=== PATIENT | female | born 1965 | race Caucasian/White ===

== ENCOUNTER 2024-11-12 08:36 | Emergency (ER) | payer OTHER, SELFPAY ==
--- NOTE | 2024-11-12 08:30 | DI.RAD_ITS ---
Exam(s) XR WRIST LT COMPLETE EXAM: XR WRIST LT COMPLETE CLINICAL HISTORY: Fall, eval fx. TECHNIQUE: 2D digital imaging was performed of the left wrist. Three images were obtained. Scaphoi d, PA, oblique and lateral views were obtained. COMPARISON: No exams were available for comparison FINDINGS: BONES: There is osseous density on the dorsum of the wrist suspicious for a triquetral fracture. The re is also question of occluded the at the posterior aspect of the radius suspicious for nondisplaced fracture. No bony destructive lesion is seen. JOINTS: The carpal bones are normally aligned. SOFT TISSUE: There is soft tissue swelling of the dorsum of the wrist. IMPRESSION: Findings suspicious for fracture involving the distal aspect of the radius dorsally and a possible tr iquetral bone fracture dorsally. A CT scan of the wrist is recommended for further evaluation. DATA REPOSITORY: RADIATION DOSE DELIVERED:
[2024-11-12 08:41] VITALS: BP 142/88; PULSE 80; RESP 18; TEMP 36.8; O2SAT 98
--- NOTE | 2024-11-12 08:44 | ED.GENADUL_ITS ---
Discharge Plan Disposition Patient Disposition: Home Condition: Stable Discharge Details Clinical Impression: Fracture of triquetral bone of left wrist, Distal radial fracture Primary Care Provider: Naima,Local ED Provider: Nita Phan Home Meds and New Rx's Prescriptions: No Action atorvastatin [Lipitor] 10 mg tablet 10 mg PO DAILY Discharge Instructions Instructions: Wrist Fracture (DC) Additional Instructions: You were seen in the emergency department today for evaluation of a fall and were found to have a fracture of your distal radius and your triquetrum. In our department you do full physical examination performed and had a splint placed. You can wear your sling for support and comfort, and need to follow-up with an orthopedic doctor in 1 week for reevaluation and cast placement. Please use Tylenol and ibuprofen for pain and ice and elevation for swelling. Thank you for allowing us to be part of your care. Discharge Data Discharge Date/Time-TO BE ENTERED AT DEPARTURE: 11/12/24 09:41 HPI General Mode of arrival: ambulatory . Date/Time Provider Initiated Documentation: 11/12/24 08:43 . Limitations to Documentation: no limitations . Information obtained by: patient . HPI Narrative: HPI: This is a 59-year-old female patient with a history of hypercholesterolemia who is presenting for evaluation of a left wrist injury. The patient was walking her dog yesterday and slipped on the ice, falling forward onto her left wrist. She states that she did not lose consciousness or injure any other part of her body during this event. Initialization she thought that she had sprained it, has been managing her symptoms at home with ibuprofen and ice. She states that the pain and swelling are worse today and she is concerned that she may have a fracture. Prior to this event the patient was in her normal state of health, and this is an isolated injury. Exam: Gen: Awake and alert, in no apparent distress HEENT: Non-icteric sclera Neck: Supple Lungs: No apparent respiratory distress, normal respiratory effort. CV: Appears well perfused Abdomen: Non-distended MSK: Moves 4 extremities without apparent limitation in ROM with the exception of her left wrist, which is swollen and painful at the radial aspect. No overlying skin breaks, no associated tenderness, deformity, or decreased range of motion at the shoulder, elbow, or fingers. She has full neurovascular function distal to this injury, minimal tenderness to palpation over the anatomical snuffbox. Skin: Visualized skin without rashes, cyanosis. Neuro: Normal Gait, no obvious focal deficits or facial asymmetry. Speaks in full, clear sentences. Psych: Appropriate for situation. MDM: This is a 59-year-old female patient presenting for evaluation of a wrist injury. Differential includes but is not limited to fracture, dislocation, sprain/strain, I below concern for neurovascular injury and reassuringly the patient has no other associated traumatic complaints. She is not desiring of any medications for management of pain at this time, and we will proceed with x- ray imaging of the affected left wrist. ED Course: I reviewed the patient's x-ray, which does show a nondisplaced distal radius fracture as well as a triquetral avulsion fracture without associated dislocation. For this reason I placed the patient in a sugar-tong splint and provided her with a sling for comfort. She resides in [place] and is traveling home in 2 days, and has the ability to follow-up with orthopedics when she returns home. At this time, the patient has had a full medical evaluation and is safe for discharge to home. They are hemodynamically stable, ambulatory, and tolerating PO. They are understanding of the follow-up plan and return precautions. They left our facility without incident. Nita Phan MD Related Data Home Medications ?Medication ?Instructions ?Recorded ?Confirmed atorvastatin 10 mg tablet (Lipitor) 10 mg PO DAILY 11/12/24 11/12/24 Allergies Allergy/AdvReac Type Severity Reaction Status Date / Time No Known Allergies Allergy Unverified 11/12/24 08:45 Procedure Orthopedic Splinting/Casting Date of Procedure: 11/12/24 Time of procedure: 08:40 Provider that performed the procedure: Nita Phan Standard Time Out Performed: No Patient Consented: Verbally Side: left Upper Extremity Injury Location: wrist Upper Extremity Immobilizer: sling/shoulder immobilizer and sugartong splint Medical Decision Making Quality:SDOH Health Related Social Needs: No Data to Display PFSH All Active Problems (Updated 11/12/24 @ 09:29 by Nita Phan MD) Distal radial fracture (Acute) Fracture of triquetral bone of left wrist (Acute) Social History Smoking/Tobacco Use Status: Never Smoking risk assessment performed?: Yes Alcohol Intake: never Substance use type: does not use Housing: house Do you feel safe at home: No Do you feel safe in your relationship?: No
--- NOTE | 2024-11-12 09:41 | NUR.NOTE ---
Nursing Note:Splint and shoulder sling applied by [facility].
== END 2024-11-12 09:41 | disposition home or self-care (01) ==
PROVIDERS: Emergency Provider Emergency Medicine
DX: S62.112A Displaced fracture of triquetrum [cuneiform] bone, left wrist, initial encounter for closed fracture (principal); S52.502A Unspecified fracture of the lower end of left radius, initial encounter for closed fracture; W00.0XXA Fall on same level due to ice and snow, initial encounter; Y93.K1 Activity, walking an animal
CPT/HCPCS: 25500; 99283; 73110